=== PATIENT | female | born 2000 | race African-American/Black ===

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

== ENCOUNTER 2019-01-25 19:19 | Emergency (ER) | payer MEDICAID ==
[~2019-01-25] VITALS: Ht 170.2 cm; Wt 68.0 kg
[2019-01-25 20:23] VITALS: BP 141/88
== END 2019-01-25 20:45 | disposition home or self-care (01) ==
LOC: ER 19:21
DX: S80.862A Insect bite (nonvenomous), left lower leg, initial encounter (principal); S80.861A Insect bite (nonvenomous), right lower leg, initial encounter; W57.XXXA Bitten or stung by nonvenomous insect and other nonvenomous arthropods, initial encounter; Y93.89 Activity, other specified; Y92.89 Other specified places as the place of occurrence of the external cause; Y99.8 Other external cause status

== ENCOUNTER 2019-06-05 21:47 | Emergency (ER) | payer MEDICAID ==
--- NOTE | 2019-06-05 22:35 | NUR ---
CALLED PT IN WAITING ROOM. NO RESPONSE.
--- NOTE | 2019-06-05 22:59 | NUR ---
CALLED PT IN WAITING ROOM. NO RESPONSE.
--- NOTE | 2019-06-05 23:39 | NUR ---
CALLED PT IN WAITING ROOM. NO RESPONSE.
== END 2019-06-05 23:15 | disposition left against medical advice (07) ==
LOC: ER 21:49
DX: Z53.21 Procedure and treatment not carried out due to patient leaving prior to being seen by health care provider (principal)

== ENCOUNTER 2020-01-25 02:39 | Emergency (ER) | payer MEDICAID ==
[~2020-01-25] VITALS: Ht 172.7 cm; Wt 88.0 kg
[2020-01-25 03:09] VITALS: BP 133/76
--- NOTE | 2020-01-25 03:35 | NUR ---
dr garduno at bedside for eval
[2020-01-25 04:22] LABS: APPEARANCE,URINE SL CLOUDY (CLEAR); BILIRUBIN,URINE NEGATIVE (NEGATIVE); BLOOD, URINE SMALL Ery/uL (NEGATIVE); COLOR,URINE YELLOW (YELLOW); KETONES,URINE NEGATIVE (NEGATIVE); LEUKOCYTE ESTERASE ,URINE SMALL (NEGATIVE); NITRITE, URINE NEGATIVE (NEGATIVE); PROTEIN,URINE NEGATIVE (NEGATIVE); UGLUCOSE NEGATIVE (NEGATIVE); UROBILINOGEN,URINE 0.2 EU/dL (0.2)
--- NOTE | 2020-01-25 06:02 | NUR ---
Patient discharged to home in stable condition. Written and verbal after care instructions given. Patient verbalizes understanding of instruction.
== END 2020-01-25 06:03 | disposition home or self-care (01) ==
LOC: ER 02:42
DX: N75.0 Cyst of Bartholin's gland (principal)
CPT/HCPCS: 81000-TC; 84703-TC

== ENCOUNTER 2021-05-11 19:52 | Emergency (ER) | payer MEDICAID ==
[~2021-05-11] VITALS: Ht 170.2 cm; Wt 90.7 kg
--- NOTE | 2021-05-11 20:00 | NUR ---
PT BIBSELF WITH C/O SORE THROAT, HEADACHE, AND CHILLS X2 DAYS ACCOMPANIED BY OCCASSIONAL COUGHING. PT AAO X 4, IN NO ACUTE DISTRESS, BREATHING EVEN AND UNLABORED, SATURATION AT 98% ON ROOM AIR. PT ALSO C/O LEG CRAMPS WHEN LAYING DOWN. PT WAS SEEN AND EXAMINED BY DR FERNANDEZ. PT ATTACHED TO MONITOR AND PULSE OX. WILL CONTINUE TO MONITOR AND CARRY OUT MD ORDERS.
[2021-05-11] MEDS ORDERED: ACETAMINOPHEN 325 MG TABLET PO ONE (20:30)
[2021-05-11] MEDS ORDERED: IBUPROFEN 600 MG TABLET PO ONE (20:30)
[2021-05-11] MEDS ORDERED: ACETAMINOPHEN ES 500 MG TABLET ONE (20:34)
[2021-05-11] MEDS ORDERED: IBUPROFEN 600 MG TABLET ONE (20:34)
--- NOTE | 2021-05-11 20:57 | NUR ---
COVID ANTIGEN AND PCR COLLECTED AND SENT TO LAB
--- NOTE | 2021-05-11 21:47 | NUR ---
CALL FROM LAB WITH POSITIVE RECSULT FOR MANAV. AWARE
--- NOTE | 2021-05-11 22:16 | NUR ---
Patient discharged to home in stable condition. Written and verbal after care instructions given. Patient verbalizes understanding of instruction. Patient ambulatory with a steady gait
[2021-05-11 22:19] VITALS: BP 118/62
--- NOTE | 2021-05-13 22:51 | NUR ---
REC'D COVID POSITIVE RESULT . PT MADE AWARE
== END 2021-05-11 22:05 | disposition home or self-care (01) ==
LOC: ER 19:52
DX: U07.1 COVID-19 (principal)
CPT/HCPCS: 87426; 99283; C9803; U0003

== ENCOUNTER 2021-11-23 01:41 | Emergency (ER) | payer MEDICAID ==
[~2021-11-23] VITALS: Ht 172.7 cm; Wt 86.2 kg
--- NOTE | 2021-11-23 02:43 | NUR ---
PATIENT BIBS WITH C/O SORETHROAT, HEADACHE, COUGHING, DIARRHEA, FEELING FATIGUE. PATIENT STATES SHES HAD A SORE THROAT SINCE November OR . BREATHING EVEN AND UNLABORED. ON ROOM AIR. NO S/S OF DISTRESS. COMPLAINTS OF IMPROVING THROAT PAIN, RATES PAIN 3/10. DENIES TAKING ANY MEDICATIONS. DENIES BEING VACCINATED. PATIENT ATTACHED TO BEDSIDE MONITOR.
--- NOTE | 2021-11-23 02:59 | NUR ---
COVID ANTIGEN AND INFLUENCE SPECIMEN COLLECTED. LAB CALLED FOR [employer] ANALYST
--- NOTE | 2021-11-23 03:37 | NUR ---
CRITICAL LAB COVID POSITIVE
[2021-11-23 03:44] VITALS: BP 128/77
--- NOTE | 2021-11-23 03:44 | NUR ---
Patient discharged to home in stable condition. Written and verbal after care instructions given. Patient verbalizes understanding of instruction.
== END 2021-11-23 03:45 | disposition home or self-care (01) ==
LOC: ER 01:52
DX: U07.1 COVID-19 (principal); R19.7 Diarrhea, unspecified
CPT/HCPCS: 87426; 87804; 99283; C9803

== ENCOUNTER 2024-02-11 07:30 | Emergency (ER) | payer MEDICAID, OTHER ==
[~2024-02-11] VITALS: Ht 170.2 cm; Wt 89.8 kg
[2024-02-11 07:40] VITALS: TEMP 97.8
[2024-02-11 08:03] LABS: BASOPHILS % (AUTO) 0.7 % (0.0-2.0); EOSINOPHILS # (AUTO) 0.1 K/uL (0.0-0.7); EOSINOPHILS % (AUTO) 1.6 % (0.0-6.0); HEMATOCRIT 36 % (33-45); HEMOGLOBIN 11.8 g/dL (11.5-14.8); LYMPHOCYTES # (AUTO) 1.9 K/uL (0.8-4.8); MEAN CORPUSCULAR HEMOGLOBIN 27 PG (26.0-33.0); MEAN CORPUSCULAR HGB CONC 33 g/dl (31.0-36.0); MEAN CORPUSCULAR VOLUME 82 fL (82-100); MONOCYTES # (AUTO) 0.4 K/uL (0.1-1.30); MONOCYTES % (AUTO) 7.2 % (2.0-12.0); NEUTROPHILS # (AUTO) 3.3 K/uL (1.8-8.9); NEUTROPHILS % (AUTO) 57.5 % (43.0-81.0); PLATELET COUNT (AUTO) 388 K/uL (150-450); RED BLOOD CELL COUNT(AUTO) 4.43 MIL/uL (4.0-5.2); RED CELL DISTRIBUTION WIDTH 13.9 % (11.5-15.0); WHITE BLOOD COUNT (AUTO) 5.8 K/uL (4.3-11.0)
[2024-02-11 08:08] LABS: CALCIUM, SERUM 8.9 mg/dL (8.5-10.1); CARBON DIOXIDE 28 mmol/L (21-32); CHLORIDE 105 mmol/L (98-107); CREATININE 0.8 mg/dL (0.6-1.3); GLUCOSE 126 mg/dL (74-106); POTASSIUM 3.7 mmol/L (3.5-5.1); SODIUM SERUM 140 mmol/L (136-145); UREA NITROGEN, BLOOD 8 mg/dL (7-18)
[2024-02-11 09:50] LABS: PREGNANCY TEST URINE QUAL NEGATIVE (NEGATIVE)
[2024-02-11] MEDS ORDERED: IBUP-1955 PO (10:14)
[2024-02-11 10:22] VITALS: BP 136/82; O2SAT 97
== END 2024-02-11 10:23 | disposition home or self-care (01) ==
LOC: ER 07:40
DX: R07.9 Chest pain, unspecified (principal)
CPT/HCPCS: 36415; 71045-TC; 80048-TC; 84443-TC; 84484-TC; 84703-TC; 85025-TC

== ENCOUNTER 2024-03-21 13:16 | Emergency (ER) | payer OTHER ==
[~2024-03-21] VITALS: Ht 170.2 cm; Wt 86.8 kg
[~2024-03-21 13:16] MED LIST: IBUP-1955 PO
[2024-03-21 13:19] VITALS: TEMP 98.9
[2024-03-21] MEDS ORDERED: MECLIZINE HCL 25 MG TABLET ONE (14:01)
[2024-03-21 14:04] LABS: BASOPHILS # (AUTO) 0.1 K/uL (0.0-0.2); BASOPHILS % (AUTO) 0.9 % (0.0-2.0); EOSINOPHILS # (AUTO) 0.1 K/uL (0.0-0.7); HEMATOCRIT 34 % (33-45); HEMOGLOBIN 11.2 g/dL (11.5-14.8); LYMPHOCYTES % (AUTO) 33.8 % (20.0-44.0); MEAN CORPUSCULAR HEMOGLOBIN 27 PG (26.0-33.0); MEAN CORPUSCULAR HGB CONC 33 g/dl (31.0-36.0); MEAN CORPUSCULAR VOLUME 82 fL (82-100); MONOCYTES # (AUTO) 0.4 K/uL (0.1-1.30); NEUTROPHILS # (AUTO) 3.4 K/uL (1.8-8.9); NEUTROPHILS % (AUTO) 57.3 % (43.0-81.0); PLATELET COUNT (AUTO) 352 K/uL (150-450); RED BLOOD CELL COUNT(AUTO) 4.15 MIL/uL (4.0-5.2); RED CELL DISTRIBUTION WIDTH 13.4 % (11.5-15.0)
[2024-03-21] MEDS: MECLIZINE HCL 12.5 MG TABLET PO ONE (14:05)
[2024-03-21] MEDS: IV NS 0.9% 1,000 ML BAG IV ONE (14:09)
[2024-03-21 14:19] LABS: CALCIUM, SERUM 8.9 mg/dL (8.5-10.1); CARBON DIOXIDE 30 mmol/L (21-32); CHLORIDE 103 mmol/L (98-107); CREATININE 0.7 mg/dL (0.6-1.3); GLUCOSE 134 mg/dL (74-106); POTASSIUM 3.6 mmol/L (3.5-5.1); SODIUM SERUM 140 mmol/L (136-145); UREA NITROGEN, BLOOD 5 mg/dL (7-18)
[2024-03-21 14:26] LABS: ALANINE AMINOTRANSFERASE 9 U/L (12-78); ALBUMIN 3.6 g/dL (3.4-5.0); ALKALINE PHOSPHATASE 26 U/L (46-116); ASPARTATE AMINOTRANSFERASE < 5 U/L (15-37); BILIRUBIN,DIRECT 0.1 mg/dL (0.0-0.2); BILIRUBIN,TOTAL 0.2 mg/dL (0.2-1.0); TOTAL PROTEIN, SERUM 7.3 g/dL (6.4-8.2)
[2024-03-21 15:19] LABS: APPEARANCE,URINE Clear (CLEAR); BILIRUBIN,URINE Negative (NEGATIVE); BLOOD, URINE Negative Ery/uL (NEGATIVE); COLOR,URINE YELLOW (YELLOW); KETONES,URINE Negative (NEGATIVE); LEUKOCYTE ESTERASE ,URINE Negative (NEGATIVE); NITRITE, URINE Negative (NEGATIVE); PROTEIN,URINE Negative (NEGATIVE); UGLUCOSE Negative (NEGATIVE)
[2024-03-21 15:25] LABS: PREGNANCY TEST URINE QUAL NEGATIVE (NEGATIVE)
[2024-03-21] MEDS ORDERED: MECL-159 PO (15:28)
[2024-03-21 16:23] VITALS: BP 146/90; O2SAT 99
[2024-03-21 16:32] LABS: ADD URINE CULTURE NO; RBC,URINE 0-2 /HPF (0-2); WBC,URINE 0-2 /HPF (0-3)
[2024-03-21 16:33] LABS: BACTERIA,URINE 0 /HPF (None Seen)
== END 2024-03-21 16:19 | disposition home or self-care (01) ==
LOC: ER 13:20
DX: R42 Dizziness and giddiness (principal)
CPT/HCPCS: 99285; 96360; 70450; 71045; 93005; 85025; 80048; 80076; 84703; 81001; 36415; 84484; J8597; J7030

== ENCOUNTER 2024-05-25 05:02 | Emergency (ER) | payer OTHER ==
[~2024-05-25] VITALS: Ht 170.2 cm; Wt 86.2 kg
[~2024-05-25 05:02] MED LIST changes: +MECL-159 PO
[2024-05-25 06:04] VITALS: BP 122/72; O2SAT 98
[2024-05-25] MEDS ORDERED: IBUPROFEN 600 MG TABLET ONE (06:32)
[2024-05-25] MEDS ORDERED: ACETAMINOPHEN ES 500 MG TABLET ONE (06:32)
[2024-05-25] MEDS: IBUPROFEN 600 MG TABLET PO ONE (06:35)
[2024-05-25 06:36] VITALS: TEMP 101
[2024-05-25] MEDS: ACETAMINOPHEN ES 500 MG TABLET PO ONE (06:36)
[2024-05-25] MEDS ORDERED: IBUP-1490 PO (06:36)
== END 2024-05-25 07:10 | disposition home or self-care (01) ==
LOC: ER 05:07
DX: J06.9 Acute upper respiratory infection, unspecified (principal); Z20.822 Contact with and (suspected) exposure to COVID-19